=== PATIENT | male | born 1980 | race Caucasian/White ===

== ENCOUNTER 2020-04-13 21:24 | Emergency (ER) | payer BC ==
[~2020-04-13] VITALS: Ht 185.4 cm; Wt 115.7 kg
[2020-04-13] MEDS ORDERED: ZOLOFT25 MG PO (21:47)
[2020-04-13] MEDS ORDERED: LISINOPRIL10 MG PO (21:47)
[2020-04-13] MEDS ORDERED: VITAMIN D250 MCG PO (21:48)
[2020-04-13] MEDS ORDERED: BACTRIM DS TAB1 EACH PO (22:02)
== END 2020-04-13 22:26 | disposition home or self-care (01) ==
LOC: ED 21:24
DX: N39.0 Urinary tract infection, site not specified (principal); I10 Essential (primary) hypertension; Z88.0 Allergy status to penicillin; Z79.899 Other long term (current) drug therapy
CPT/HCPCS: 81001; 99283